=== PATIENT | female | born 2000 | race Caucasian/White ===

== ENCOUNTER 2021-03-11 19:30 | Emergency (ER) | payer SELFPAY ==
[~2021-03-11] VITALS: Ht 160 cm; Wt 99.5 kg
[2021-03-11 19:50] VITALS: TEMP 97.2
[2021-03-11 22:25] VITALS: BP 114/78; PULSE 76
== END 2021-03-11 22:25 | disposition home or self-care (01) ==
LOC: COL.ER 19:30
DX: S63.92XA Sprain of unspecified part of left wrist and hand, initial encounter (principal); V48.5XXA Car driver injured in noncollision transport accident in traffic accident, initial encounter

== ENCOUNTER 2021-08-15 17:23 | Emergency (ER) | payer BC ==
[~2021-08-15] VITALS: Ht 160 cm; Wt 96.4 kg
[2021-08-15 17:49] VITALS: TEMP 98.8
[2021-08-15 19:15] LABS: ALBUMIN 4.6 gm/dL (3.5-5.0); BILIRUBIN,TOTAL 0.4 mg/dL (0.2-1.2); CALCIUM 10.1 mg/dL (8.4-10.2); CREATININE, serum 0.67 mg/dL (0.57-1.11); POTASSIUM 3.8 mmol/L (3.5-4.5); TOTAL PROTEIN 7.6 gm/dL (6.2-8.1)
[2021-08-15 19:17] LABS: BASO # 0.1 K/mm3 (0.0-0.2); BASO % 0.8 % (0.0-2.0); EOS # 0.4 K/mm3 (0.0-0.7); EOS % 4.9 % (0.0-4.0); HEMATOCRIT 41.8 % (37.0-47.0); HEMOGLOBIN 14.2 g/dl (12.5-16.0); LYMPH # 1.8 K/mm3 (1.2-3.4); LYMPH % 19.9 % (20.0-51.0); MEAN CELL VOLUME 84 fl (80.0-100.0); MEAN CORPUSCULAR HEMOGLOBIN 29 pg (27-31); MEAN CORPUSCULAR HGB CONC 34 g/dl (33.0-37.0); MEAN PLATELET VOLUME 9.8 fl (7.4-10.4); MONO # 0.5 K/mm3 (0.1-0.6); PLATELET COUNT 362 K/mm3 (130-400); RED BLOOD COUNT 4.97 M/mm3 (4.10-5.30); REDCELL DISTRIBUTION WIDTH-CV 12.4 % (11.5-14.5)
[2021-08-15 21:17] VITALS: BP 121/82; PULSE 82
== END 2021-08-15 21:14 | disposition home or self-care (01) ==
LOC: COL.ER 17:23
PROVIDERS: Physician Assistant
DX: O03.4 Incomplete spontaneous abortion without complication (principal); J45.909 Unspecified asthma, uncomplicated
CPT/HCPCS: J2791; J7030

== ENCOUNTER 2023-07-16 14:24 | Inpatient (IN) | payer BC, MEDICAID ==
[~2023-07-16] VITALS: Ht 160 cm; Wt 109.1 kg
[2023-07-16] VITALS (18 sets, daily range): BP systolic 108–141; BP diastolic 67–94; PULSE 77–116; TEMP 98.4–98.6
[2023-07-16] MEDS ORDERED: LR 1,000 ML IV PRN ×2 (14:45→17:45)
[2023-07-16] MEDS ORDERED: PRENATAL TABLET PO (14:58)
[2023-07-16] MEDS ORDERED: PROAIR HFA0.09 MG/AC IH (14:58)
--- NOTE | 2023-07-16 15:04 | NUR ---
Pt and partner arrive ambultory on unit at 1435, pt changes into gown, EFM explained and placed, VS taken. Pt reports contractions for last 2 days, but became regular about 1300 today, believes they are about 10 minutes apart. Pt also states she thinks her water possibly broke yesterday around 0800. Pt reports good movement, denies vaginal bleeding and any other concerns. Contractions noted on FM, mild on palpation. Amnitest done, negative. SVE cl/th. Prenatals state pt desires primary , when asked, pt stated this is what she still desires if in labor at this time.
[2023-07-16] MEDS ORDERED: LR 1,000 ML IV SCH (16:15)
[2023-07-16 16:26] LABS: BASO # 0.1 K/mm3 (0.0-0.2); BASO % 0.5 % (0.0-2.0); EOS # 0.4 K/mm3 (0.0-0.7); EOS % 3.4 % (0.0-4.0); GRAN # 9.9 K/mm3 (1.4-6.5); GRAN % 76.5 % (42.2-75.2); LYMPH # 1.8 K/mm3 (1.2-3.4); LYMPH % 13.7 % (20.0-51.0); MEAN CELL VOLUME 79 fl (80.0-100.0); MEAN CORPUSCULAR HEMOGLOBIN 26 pg (27-31); MEAN CORPUSCULAR HGB CONC 33 g/dl (33.0-37.0); MEAN PLATELET VOLUME 10.8 fl (7.4-10.4); MONO # 0.6 K/mm3 (0.1-0.6); MONO % 4.6 % (1.7-9.3); PLATELET COUNT 322 K/mm3 (130-400); RED BLOOD COUNT 4.57 M/mm3 (4.10-5.30); REDCELL DISTRIBUTION WIDTH-CV 12.8 % (11.5-14.5)
[2023-07-16] MEDS ORDERED: Phenylephrine 10 MG/ML VIAL ONE (16:26)
[2023-07-16] MEDS ORDERED: Ketorolac 60 MG/2 ML VIAL IM ONE (16:26)
[2023-07-16] MEDS ORDERED: Oxytocin 10 UNITS/ML VIAL ONE (16:27)
[2023-07-16] MEDS ORDERED: NS 20 ML IV ONE (16:27)
[2023-07-16] MEDS ORDERED: Ondansetron 4 MG/2 ML VIAL ONE (16:27)
[2023-07-16 16:28] LABS: HEMATOCRIT 36.3 % (37.0-47.0)
[2023-07-16] MEDS ORDERED: LR 1,000 ML IV ONE (17:05)
[2023-07-16] MEDS ORDERED: Meperidine 50 MG/ML 1 ML VIAL ONE (17:05)
[2023-07-16 17:10] LABS: TRICYCLIC ANTIDEPRESS URINE NEGATIVE (NEGATIVE)
[2023-07-16] MEDS ORDERED: Morphine 4 MG/ML VIAL IV PRN (17:45)
[2023-07-16] MEDS ORDERED: Loratadine 10 MG TAB PO PRN (17:45)
[2023-07-16] MEDS ORDERED: Acetaminophen 500 MG TAB PO SCH (17:45)
[2023-07-16] MEDS ORDERED: Ondansetron 4 MG/2 ML VIAL IV PRN (17:45)
[2023-07-16] MEDS ORDERED: Naloxone 0.4 MG/ML VIAL IV PRN (17:45)
[2023-07-16] MEDS ORDERED: Magnes Hydrox (MOM) 80 MG/ML 30 ML CUP PO PRN (17:45)
[2023-07-16] MEDS ORDERED: Measles/Mumps/Rubella Virus Vaccine Live w Diluent 0.5 ML VIAL SQ SCH (17:45)
[2023-07-16] MEDS ORDERED: oxyCODONE 5 MG TAB PO PRN (17:45)
--- NOTE | 2023-07-16 19:02 | NUR ---
1600 - repeat SVE at 1550 1-2/[address] Hernadez notified, see physician notification. 1610 - Pt informed of Dr. Hernadez' plan for at 1630, verbalizes agreement and understanding. Consents signed, IV started, labs drawn and LR started per protocol. Urine sample obtained for UDS due to drug history. Pt prepped for , taken off monitors at 1613 and taken ambulatory to OR.
[2023-07-16] MEDS ORDERED: traZODone 50 MG TAB PO PRN (21:00)
--- NOTE | 2023-07-16 21:45 | NUR ---
2145 LEGS MOBILE. UP TO BR WITH ASSIST. MANLEY DCD WITH 1500 CC URINE IN BAG. PERICARE DONE. BINDER ON. RETURNED TO BED. SHALOM WELL.
[2023-07-16] MEDS ORDERED: Ibuprofen 800 MG TAB PO SCH (23:45)
[2023-07-17] VITALS: BP 113/64; PULSE 88; TEMP 98.4
[2023-07-17 07:44] VITALS: BP 145/85; PULSE 95; TEMP 98.3
[2023-07-17] MEDS ORDERED: Sennosides/Docusate 8.6-50 MG TAB PO SCH (08:00)
--- NOTE | 2023-07-17 10:19 | NUR ---
Initial visit attempt; Family resting, Employee Adviser left a card offering congratulations and God's blessings for the of their daughter and information regarding the availability of [facility] Care at our hospital.
[2023-07-17] MEDS ORDERED: Rho(D) Imm Globulin 1,500 UNITS (300 MCG)/2 ML SYRINGE IV\\IM SCH (11:00)
[2023-07-17 17:28] VITALS: BP 129/90; PULSE 98; TEMP 98
--- NOTE | 2023-07-17 18:30 | NUR ---
Report recieved at this time. Sitting up in bed, at this time. POC reviewed and whiteboard updated. Questions invited and answered.
[2023-07-17 19:30] VITALS: BP 127/78; PULSE 98; TEMP 98.1
--- NOTE | 2023-07-17 22:50 | NUR ---
Support person rocking in the bathroom with the door closed. Patient resting in bed, crying with lights off. Patient states, "She has just been nursing this whole time and I can't do any more. I am just so tired and I don't know if I am giving her enough." calmed by father. Patient agrees to see if will fall asleep in the nursery to allow her time to rest and nap. This nurse agrees to bring back to bedside if she is showing feeding cues.
[2023-07-18] MEDS ORDERED: MOTRIN 800800 MG/TAB PO (07:35)
[2023-07-18] MEDS ORDERED: ROXICODONE 55 MG/TAB PO (07:36)
[2023-07-18 08:30] VITALS: BP 144/86; PULSE 97; TEMP 98.2
--- NOTE | 2023-07-18 08:30 | NUR ---
Rests in bed, alert, holds baby. Request pain medication. 0838 Ibuprofen 800mg, oxycodone 5 mg given per request and as ordered.
--- NOTE | 2023-07-18 15:13 | NUR ---
lock up worker met with patient to assess for needs and to address history of drug usage/THC and mushrooms. Patient was open to social work visit and spoke about her history of drug use and that she had not used during . Patient states she is aware that she cannot use drugs while nursing her baby. Patient denies that she has an addiction issue and denies need for treatment. patient states that the father of her baby is getting a car seat now and that they have all of the needed supplies. Worker provided written and verbal education on local resources as well as mental health resources. Worker encouraged patient to reach out to [employer] charities if they needs supplies. Worker collaborated with patient's nurse regarding care and nurse states there are not care concerns.
--- NOTE | 2023-07-18 15:20 | NUR ---
Addendum: Patient's urine drug screen was negative as well as the babies. Awaiting cord blood results.
--- NOTE | 2023-07-18 15:30 | NUR ---
Rests in bed, alert. States baby ate some more.
[2023-07-18 18:30] VITALS: BP 141/82; BP 141/90; PULSE 105; PULSE 94; TEMP 98.2
--- NOTE | 2023-07-18 19:15 | NUR ---
1915- PT ESCORTED TO EXIT WITH SPOUSE, BABY, AND BELONGINGS.
== END 2023-07-18 19:15 | disposition home or self-care (01) | DRG 788 ==
LOC: LDRO 14:24 → LDR 16:03 → OB 16:03
PROVIDERS: ADMIT Obstetrics & Gynecology
PROC: 10D00Z1 Extraction of Products of Conception, Low, Open Approach (ICD-10-PCS; principal; 2023-07-16)
DX: O99.344 Other mental disorders complicating childbirth (principal); Z3A.38 38 weeks gestation of pregnancy; Z37.0 Single live birth; O99.214 Obesity complicating childbirth; F32.A Depression, unspecified; J45.909 Unspecified asthma, uncomplicated; O99.52 Diseases of the respiratory system complicating childbirth; L30.9 Dermatitis, unspecified; F41.9 Anxiety disorder, unspecified; O99.72 Diseases of the skin and subcutaneous tissue complicating childbirth; Z88.0 Allergy status to penicillin; Z23 Encounter for immunization
CPT/HCPCS: J0690; J1885; J2175; J2371; J2405; J2590; J2791; J7120